=== PATIENT | female | born 1980 | race African-American/Black ===

== ENCOUNTER 2019-06-28 05:54 | Emergency (ER) | payer MEDICARE, OTHER ==
[~2019-06-28] VITALS: Ht 170.2 cm; Wt 111.0 kg
[2019-06-28] MEDS ORDERED: IBUPROFEN 600MG TABLET PO ONE (07:45)
[2019-06-28 07:55] VITALS: BP 131/87
== END 2019-06-28 11:30 | disposition home or self-care (01) ==
LOC: ER 05:54
DX: S82.831A Other fracture of upper and lower end of right fibula, initial encounter for closed fracture (principal); E11.9 Type 2 diabetes mellitus without complications; Y04.0XXA Assault by unarmed brawl or fight, initial encounter; Y07.03 Male partner, perpetrator of maltreatment and neglect; Y93.89 Activity, other specified; Y92.018 Other place in single-family (private) house as the place of occurrence of the external cause
CPT/HCPCS: 29515; 73610; 99283